=== PATIENT | male | born 1985 | race Caucasian/White ===

== ENCOUNTER 2018-09-22 22:14 | Emergency (ER) | payer SELFPAY ==
[~2018-09-22] VITALS: Ht 162.6 cm; Wt 67.8 kg
[2018-09-22 23:42] VITALS: BP 115/70
== END 2018-09-22 23:42 | disposition home or self-care (01) ==
LOC: ED 22:14
DX: R21 Rash and other nonspecific skin eruption (principal); R51 Headache
CPT/HCPCS: J2930; Q0163